=== PATIENT | male | born 1970 | race Caucasian/White ===

== ENCOUNTER 2017-05-18 01:03 | Emergency (ER) | payer BC ==
[~2017-05-18] VITALS: Ht 182.9 cm; Wt 102.0 kg
[~2017-05-18 01:03] MED LIST: CYAN1TAB43
[2017-05-18 07:12] VITALS: BP 113/65
== END 2017-05-18 07:18 | disposition home or self-care (01) ==
LOC: ER 01:04
DX: S01.81XA Laceration without foreign body of other part of head, initial encounter (principal); F12.10 Cannabis abuse, uncomplicated; X58.XXXA Exposure to other specified factors, initial encounter; Y93.89 Activity, other specified; Y92.89 Other specified places as the place of occurrence of the external cause; Y99.8 Other external cause status
CPT/HCPCS: 12011; 99283; X7700; Z7610